=== PATIENT | male | born 1990 | race Caucasian/White ===

== ENCOUNTER 2023-07-13 15:36 | Emergency (ER) | payer OTHER ==
--- NOTE | 2023-07-13 17:23 | ED Physician Documentation ---
PD HPI CHEST PAIN - Stated complaint Stated Complaint: CHEST PX - Chief complaint Chief Complaint: Cardiac - History obtained from History obtained from: Patient - Additional information Additional information: Otherwise healthy 32-year-old gentleman has had 2 weeks of fairly constant left- sided chest pain radiating up and down. He notes it is worse with certain yoga poses. Denies any shortness of breath with it. No pedal edema or calf pain. He does not know much about his family history, he is father is estranged and his mother was adopted. He had a similar episode a couple of years ago with negative workup while he was in the . PD PAST MEDICAL HISTORY - Past Medical History Past Medical History: Yes Cardiovascular: None Respiratory: None Neuro: None Endocrine/Autoimmune: None GI: None : None HEENT: None Psych: Depression, Anxiety Musculoskeletal: None Derm: None - Past Surgical History Past Surgical History: No - Present Medications Home Medications: Ambulatory Orders Medication Instructions Recorded Confirmed Esomeprazole Magnesium [Nexium 1 cap PO PRN PRN 07/13/23 07/13/23 24Hr] - Allergies Allergies/Adverse Reactions: Allergies Allergy/AdvReac Type Severity Reaction Status Date / Time No Known Drug Allergies Allergy Verified 07/13/23 15:42 - Social History Does the pt smoke?: No Smoking Status: Never smoker Does the pt drink ETOH?: No Does the pt have substance abuse?: No - Immunizations Immunizations are current?: Yes - POLST Patient has POLST: No PD ED PE NORMAL - Vitals Vital signs reviewed: Yes - General General: Alert and oriented X 3, No acute distress - Neck Neck: Supple, no meningeal sign, No bony TTP - Cardiac Cardiac: RRR, No murmur - Respiratory Respiratory: No respiratory distress, Clear bilaterally - Abdomen Abdomen: Non tender - Extremities Extremities: No edema, No calf tenderness / cord - Neuro Neuro: Alert and oriented X 3, Normal speech Results - Vitals Vitals: Vital Signs - 24 hr 07/13/23 07/13/23 07/13/23 15:43 15:46 16:27 Temperature 36.5 C Heart Rate 80 86 Respiratory 16 18 Rate Blood Pressure 150/90 H 171/110 H Blood Pressure 171/110 H [Left] O2 Saturation 100 95 07/13/23 17:46 Temperature Heart Rate 66 Respiratory 18 Rate Blood Pressure 127/85 H Blood Pressure [Left] O2 Saturation 98 Oxygen O2 Source Room air - EKG (time done) 1546 EKG releavant findings:: EKG personally interpreted by author of this note. Relevant findings are: Rate: Rate (enter#) (63) Rhythm: NSR, LAE Stuart: Normal Intervals: Normal NE, RBBB QRS: Normal Ischemia: Normal ST segments - Labs Labs: Laboratory Tests 07/13/23 17:21 Troponin I High Sens 2.3 - Rads (name of study) 2v chest xr Relevant Findings:: Final report received, EMP independent interpretation of test PD Medical Decision Making - ED course ED course: HEART 0 Perc neg Departure - Departure Disposition: Home, Self Care Clinical Impression: Chest wall pain Condition: Good Record reviewed to determine appropriate education?: Yes Instructions: ED Chest Pain Atypical Unkn Cause Comments: Cardiac testing today was normal and unremarkable also with a normal chest x- ray. Does seem musculoskeletal given the association with certain positions when doing yoga. That said your EKG is really not concerning nor is the lab work which look at any recent signs of heart damage. Call your doctor to arrange a follow-up appointment, make the next available appointment. In the interim, return anytime if worse or if new symptoms develop. Forms: PCP List
[2023-07-13 18:18] VITALS: BP 127/85; O2SAT 98
--- NOTE | 2023-07-13 18:24 | XRAY Report ---
PROCEDURE: Chest 2V INDICATIONS: cp TECHNIQUE: 2 views of the chest were acquired. COMPARISON: None. FINDINGS: Surgical changes and devices: None. Lungs and pleura: No dense consolidation or pleural effusion. Mediastinum: Normal heart size Bones and chest wall: Unremarkable IMPRESSION: No acute radiographic abnormality. Reviewed by: Saul Arenas MD on 07/13/2023 6:23 PM [facility] Approved by: Saul Arenas MD on 07/13/2023 6:23 PM [facility] Station ID: [id number]
== END 2023-07-13 18:49 | disposition home or self-care (01) ==
LOC: ED 15:36
DX: R07.89 Other chest pain (principal)
CPT/HCPCS: 36415; 84484; 93005; 99283; 99284